=== PATIENT | female | born 1980 | race Caucasian/White ===

== ENCOUNTER 2022-04-28 12:41 | Outpatient (CLI) | payer OTHER | END 2022-04-28 23:59 | disposition home or self-care (01) | LOC: CARD DIAG 12:41 | PROVIDERS: ATTEND Chiropractor | DX: I37.1 Nonrheumatic pulmonary valve insufficiency (principal); I50.9 Heart failure, unspecified; R00.0 Tachycardia, unspecified | CPT/HCPCS: 93005; 93306 ==

== ENCOUNTER 2023-02-16 05:37 | Day surgery (SDC) | payer OTHER ==
[2023-02-10 11:35] LABS: BASOPHILS # (AUTO) 0.1 X10'3 (0-0.2); BASOPHILS % (AUTO) 1.1 % (0-1); EOSINOPHILS # (AUTO) 0.3 X10'3 (0-0.9); EOSINOPHILS % (AUTO) 4.8 % (0-6); LYMPHOCYTES % (AUTO) 35.3 % (21-51); MEAN CORPUSCULAR HEMOGLOBIN 28.3 PG (27.0-31.0); MEAN CORPUSCULAR HGB CONC 33.6 g/dL (33.0-36.5); MEAN CORPUSCULAR VOLUME 84.1 FL (78-98); MEAN PLATELET VOLUME 7.9 FL (7.4-10.4); MONOCYTES # (AUTO) 0.5 X10'3 (0-0.9); MONOCYTES % (AUTO) 7.9 % (2-12); NEUTROPHILS # (AUTO) 2.9 X10'3 (1.8-7.7); NEUTROPHILS % (AUTO) 50.9 % (42-75); PRE OP HEMATOCRIT 39.2 % (35.0-45.0); PRE OP HEMOGLOBIN 13.2 g/dL (12.0-16.0); PRE OP PLATELET COUNT 199 X10'3 (140-440); PRE OP WHITE BLOOD COUNT 5.7 10'3 (4.8-10.8); RED BLOOD COUNT 4.66 X10'6 (4.20-5.60); RED CELL DISTRIBUTION WIDTH 13.4 % (11.5-14.5)
[2023-02-10 11:51] LABS: ALKALINE PHOSPHATASE 57 IU/L (46-116); BLOOD UREA NITROGEN 11 MG/DL (7-18); BUN/CREATININE RATIO 13.8 (10.0-20.0); CALCIUM 9.4 MG/DL (8.5-10.1); CHLORIDE 104 MMOL/L (99-107); PRE OP ALT 22 U/L (30-65); PRE OP ANION GAP 7 (8-16); PRE OP AST 13 U/L (10-37); PRE OP BILIRUB, TOTAL 0.3 MG/DL (0.0-1.0); PRE OP GLUCOSE 99 MG/DL (70-104); PRE OP POTASSIUM 4.4 MMOL/L (3.4-5.1); PRE OP SODIUM 139 MMOL/L (135-145); TOTAL CARBON DIOXIDE 27.8 MMOL/L (24-32); TOTAL PROTEIN 7.9 G/DL (6.4-8.2); eGFR 79 ML/MIN
[2023-02-10 12:06] LABS: HCG SERUM QL NEGATIVE
[~2023-02-16] VITALS: Ht 165.1 cm; Wt 101.9 kg
[2023-02-16] VITALS (23 sets, daily range): BP systolic 83–145; BP diastolic 46–82; PULSE 60–77; RESP 10–22; TEMP 98.1; O2SAT 94–100
[~2023-02-16 05:37] MED LIST: CHOL10005 PO; DOCUMENT DATE & TIME OF BETA-BLOCKER PO ONE; MAGN400T39 PO; METO-411 PO; cefazolin 2gm/D5W 100mL 100 ML IV ONE; famotidine 20mg tablet PO ONE; ringers solution, lacted 1,000 ML IV SCH
[2023-02-16] MEDS ORDERED: BUPIVAcaine/PF 2.5 mg/ml (0.25%) 30ml vial ONE (06:36)
[2023-02-16] MEDS ORDERED: cloNIDine hcl/PF 100mcg/ml inj ONE (08:54)
[2023-02-16] MEDS ORDERED: ROPIVAcaine 0.5% (5mg/ml) 30ml vial IJ ONE (09:00)
[2023-02-16] MEDS ORDERED: midazolam 1 mg/ML 2ml injection ONE ×2 (09:01)
[2023-02-16] MEDS ORDERED: fentaNYL/PF 50MCG/1 ML 2ML syringe ONE (09:01)
[2023-02-16] MEDS ORDERED: propofol inj 20 ML IV ONE (09:01)
[2023-02-16] MEDS ORDERED: ROPIVAcaine 0.5% (5mg/ml) 30ml vial ONE (09:04)
[2023-02-16] MEDS ORDERED: meperidine/PF 25mg/ml syringe IV PRN ×3 (09:10)
[2023-02-16] MEDS ORDERED: morphine 4 MG/ML inj SYRINge IV PRN (09:10)
[2023-02-16] MEDS ORDERED: proCHLORperazine 10 MG/2 ml inj IV PRN (09:10)
[2023-02-16] MEDS ORDERED: ondansetron/PF 4mg/2ml inj IV PRN (09:10)
[2023-02-16] MEDS ORDERED: ringers solution, lacted 1,000 ML IV SCH (09:10)
[2023-02-16] MEDS ORDERED: morphine 2 MG/ML inj. syringe IV PRN (09:10)
[2023-02-16] MEDS ORDERED: sevoflurane 250ml liquid IH ONE (09:13)
[2023-02-16] MEDS ORDERED: dexamethasone sod phosphate 4mg/ml inj. ONE (11:33)
[2023-02-16] MEDS ORDERED: ondansetron/PF 4mg/2ml inj ONE (11:34)
--- NOTE | 2023-02-16 11:36 | NUR ---
Received from OR via [facility], accompanied by Anesthesiologist DAYNE and report given by Anesthesiolgist. PT PRESENTS ON 6L VIA MASK WITH SPO2 100%. RIGHT SHOULDER DRESSING, CDI COVERED BY WRAP WITH ICE IN PLACE. PATIENT IS WEARING SLING TO COVERE RIGHT SHOULDER. LR RUNNING AT 100ML/HR. BILAT RADIAL PULSES PALPABLE. RR EVEN AND UNLABORED. NO C/O PAIN, NAUSEA, DISTRESS AT THIS TIME. SCD'S IN PLACE.
[2023-02-16] MEDS ORDERED: HYDROcodone/acetaminophen 10/325mg tab PO PRN (11:40)
--- NOTE | 2023-02-16 12:35 | NUR ---
REPOSITIONED PATIENT FOR COMFORT HER SLING WAS BOTHERING HER. CALLED MOM, VANDANA WITH ALE.
--- NOTE | 2023-02-16 13:13 | NUR ---
PATIENT WANTED TO SIT ON THE EDGE OF THE GURNEY TO REPOSITION. ASSISTED WITH REPOSITIONING FOR COMFORT.
--- NOTE | 2023-02-16 13:20 | NUR ---
PATIENT SAT UP IN BED FEELING NAUSEOUS. SHE DID NOT VOMIT AND ZOFRAN WAS ADMINISTERED. AT THE SAME TIME SHE APPEARED TO HAVE A VASAL VAGAL EPISODE AND FELT DIZZY WITH HR IN 40'S. PATIENT WAS PLACED ON 2L NC AND IN THE SUPINE POSITION WHICH CAUSED HER HR TO INCREASE TO 50-60'S.
--- NOTE | 2023-02-16 13:31 | NUR ---
CALLED DR FIELD RE: PATIENT STATUS. REC'D ORDER TO GIVE 500CC LR BOLUS STAT X 1.
--- NOTE | 2023-02-16 13:35 | NUR ---
ORDER RECEIVED FROM DR OSCAR, 500CC LR BOLUS STAT X 1.
--- NOTE | 2023-02-16 14:10 | NUR ---
BOLUS COMPLETE: PATIENT IS SITTING UP IN BED PER HER REQUEST AND FEELS 100% BETTER SHE STATES. VSS. WILL CONTINUE TO ASSESS. UPDATED MOM IN WAITING ROOM AND RETRIEVED PATIENTS CELL PHONE PER HER REQUEST.
--- NOTE | 2023-02-16 14:40 | NUR ---
MD OSCAR IN ROOM. PATIENT IS STABLE AND HE AGREES WITH D/C.
--- NOTE | 2023-02-16 14:50 | NUR ---
PT REQUESTING DORA CRACKERS AND JUICE. WILL CONTINUE TO ASSESS.
--- NOTE | 2023-02-16 15:36 | NUR ---
Pt was discharged to home safely via w/c. Pt states readiness for DC to home and is tolerating crackers and juice well. Shoulder sling on, powder pack remains in place. Klever CDI to r shoulder. Instrcutions rev'd w/ pt and Mom and both state understanding. All belonging w/ pt upon dc to home. Pt and her Mom both very thankful for her care here. Pt denies pain and nausea. Pt is stable on her feet and feels safe to to home. Pt to Moms care safely via w/c.
== END 2023-02-16 15:36 | disposition home or self-care (01) ==
LOC: PAS 05:37
PROVIDERS: ATTEND Orthopaedic Surgery
DX: S43.431A Superior glenoid labrum lesion of right shoulder, initial encounter (principal); M75.41 Impingement syndrome of right shoulder; M25.311 Other instability, right shoulder; M24.411 Recurrent dislocation, right shoulder; I48.91 Unspecified atrial fibrillation; F32.A Depression, unspecified; F41.9 Anxiety disorder, unspecified; E66.9 Obesity, unspecified; Z68.37 Body mass index [BMI] 37.0-37.9, adult; G89.18 Other acute postprocedural pain; Z79.899 Other long term (current) drug therapy; Z88.8 Allergy status to other drugs, medicaments and biological substances; Z87.891 Personal history of nicotine dependence; Z91.018 Allergy to other foods; Z98.890 Other specified postprocedural states; X58.XXXA Exposure to other specified factors, initial encounter; Y93.89 Activity, other specified; Y92.89 Other specified places as the place of occurrence of the external cause; Y99.8 Other external cause status
CPT/HCPCS: 29806; 29807; 36415; 64415; 80053; 82948; 84703; 85025; 93005; C1713; J0690; J0735; J1100; J2250; J2405; J2704; J2795; J3010; J3490; J7120; Z7506; Z7508; Z7512; A4615; A4618; A4649; A6253; A6449; A7000